=== PATIENT | male | born 1970 | race Two or more races ===

== ENCOUNTER → 2016-04-22 | Day surgery (SDC) | payer MEDICARE, MEDICAID ==
[~2016-04-22] VITALS: Ht 180.3 cm; Wt 110.0 kg
[~2016-04-22] MED LIST: ACETAMINOPHEN 1000 MG/100 ML VIAL IV ONE; AMIT1TAB79 PO; ASPI81TA81 PO; BUPIVACAINE HCL PF 0.5% 30 ML VIAL ONE; CYCL1TAB29 PO; DESM1SPR NASAL; DEXT 5%-NACL 0.45% 1000 ML INJ 1,000 ML IV SCH; DO NOT ADM ANY ANTICOAGULANT DRUGS XX PRN; FAMOTIDINE 20 MG/2 ML VIAL ONE; GABA300C5 PO; GABA600T PO; HYDR10TA65 PO; HYDR5TAB64 PO; HYDROCORTISONE SOD SUCCINATE 100 MG VIAL ONE; IBUP800T23 PO; INSULIN HUMAN REGULAR 1,000 UNITS/10 ML VIAL SQ PRN; LACTATED RINGER'S 1000 ML INJ 1,000 ML IV ONE; LACTATED RINGER'S 1000 ML IV SCH; LEVO137T2 PO; LISI-519 PO; METF1000 PO; METOPROLOL TARTRATE 25 MG TAB PO PRN; MIDAZOLAM HCL 2 MG/2 ML VIAL ONE; NEOSTIGMINE 3 MG/3 ML SYR IV ONE; NORC5TAB PO; ONDANSETRON HCL 4 MG/2 ML VIAL ONE; PERC10TA27 PO; POVIDONE IODINE 10% OINT 1 PACKET TOP ONE; PROPOFOL 200 MG/20 ML AMP IV ONE; SIMV20TA PO; SODIUM CHLORID 0.9% 500 ML IV SCH; SODIUM CHLORIDE 0.9% FLUSH 5 ML FLUSH IVF PRN; SODIUM CHLORIDE 0.9% FLUSH 5 ML FLUSH IVF SCH; TEST1INJ3 IM; ceFAZolin 2 GM PREMIX 50 ML IV SCH; fentaNYL CITRATE 250 MCG/5 ML AMP ONE; oxyCODONE/ACETAMINOPHEN 10 MG/325 MG TAB ONE; oxyCODONE/ACETAMINOPHEN 10 MG/325 MG TAB PO ONE
[2016-04-22 06:43] VITALS: BP 133/83; PULSE 87; RESP 16; TEMP 98; O2SAT 96
[2016-04-22 06:53] LABS: AUTOMATED NEUTROPHIL # 2.6 TH/MM3 (1.8-7.7); BASOPHIL # 0.1 TH/MM3 (0-0.2); EOSINOPHIL # 0.3 TH/MM3 (0-0.4); EOSINOPHIL % 4.5 % (0.0-4.0); HEMO FLAGS DIFF FINAL; LYMPH % 40.3 % (9.0-44.0); LYMPHOCYTE # 2.3 TH/MM3 (1.0-4.8); MEAN CELL VOLUME 89.4 FL (80.0-100.0); MEAN CORPUSCULAR HEMOGLOBIN 31.4 PG (27.0-34.0); MEAN CORPUSCULAR HGB CONC 35.1 % (32.0-36.0); MONO % 8.9 % (0.0-8.0); NEUT % 45.3 % (16.0-70.0); PLATELET COUNT 182 TH/MM3 (150-450); RED BLOOD COUNT 4.26 MIL/MM3 (4.50-5.90); RED CELL DISTRIBUTION WIDTH 13.2 % (11.6-17.2); WHITE BLOOD COUNT 5.7 TH/MM3 (4.0-11.0)
--- NOTE | 2016-04-22 07:52 | HP.UPD ---
H&P Update Date: Apr 22, 2016 Note The Pre-Admit History and Physical Examination regarding the above named patient was reviewed (including, but not limited to, vital signs, medications, allergies, co-morbid conditions), and upon re-examination it is noted that: Indicated with "X" x - the patient's condition has not significantly changed since the last examination. [] - the patient's condition has changed since the last examination. Changes: Heather Cruz MD Apr 22, 2016 07:52
--- NOTE | 2016-04-22 10:58 | HHI.PR ---
Immediate Post Op Note Procedure Date: Apr 22, 2016 Pre Op Diagnosis: (1) Dupuytren's contracture Right hand Post Op Diagnosis: (1) Dupuytren's contracture Right hand. Surgeon: Heather Cruz MD Wafer Fab Technician(s): N/A Procedure: Excision of Dupuytren's fascia with release of contracture right palm, fourth and fifth finger. Complications: N/A Specimen(s) removed: Dupuytren's fascia Estimated blood loss: None Anesthesia: General Drains: None Tourniquet time (min at mmHg) 113minute 230mmHg Patient to: PACU Patient Condition: Mariah Nicole Apr 22, 2016 10:58
[2016-04-22 11:02] VITALS: PULSE 89
[2016-04-22 12:45] VITALS: BP 135/80; PULSE 100; RESP 18; TEMP 97.9; O2SAT 96
--- NOTE | 2016-04-22 22:38 | EKG ---
Date Performed: 04/22/2016 Time Performed: 06:50:46 PTAGE: 46 years EKG: Sinus rhythm NORMAL ECG NO PREVIOUS TRACING DOCTOR: Lesa Mark Interpretating Date/Time 04/22/2016 22:35:12
--- NOTE | 2016-04-26 19:17 | MP ---
cc: MELECIO CERON M.D. DATE OF SURGERY: 04/22/2016 PREOPERATIVE DIAGNOSIS: Dupuytren's disease with contracture of the right palm fourth and fifth fingers. POSTOPERATIVE DIAGNOSIS: Dupuytren's disease with contracture of the right palm fourth and fifth fingers. PROCEDURE: 1. Release Dupuytren's contracture right palm and fifth finger. 2. Release Dupuytren's contracture of right palm and fourth finger. ANESTHESIA General SURGEON Melecio Ceron MD INDICATIONS 46-year-old male with history of Dupuytren's disease for release findings at the completion of the procedure the fingers was straight and fascia removed and with good circulation of the fingers tourniquet time was 113 minutes at 220 mmHg. PROCEDURE The patient was seen preoperatively. The sites and survey identified and marked. The patient was then taken to the operating room, placed in supine position. His identity was checked against the arm and the consent form site and side confirmed, time-out called prior to in the procedure the right upper extremity was prepped with Hibiclens and draped in usual sterile fashion. The area be incised was on a marking pen a zigzag incision on the proximal palm all the way to the PIP joint of the fifth finger and from the proximal to the middle part of the ring finger. The arm was exsanguinated, tourniquet inflated to 250 mmHg bupivacaine 0.5% plain was then used to make ulnar and median nerve blocks in the area of the wrist. #15 blade was then used to make a zigzag incision in the palm and fifth finger, down through skin down to the subcutaneous tissue. Proximal dissection was done from proximal to distal and the deep fibers as well as a horizontal fibers were divided. The neurovascular bundles were identified and used to he had uses a guide to excise the fascia. The dissection went from proximal and distal to the fascia was completely out and the finger was straight. Attention then turned to the mid ring finger where the incision was made down through skin down to the subcutaneous tissue under loop magnification. Neurovascular bundles were identified and the Dupuytren's fascia was carefully from the underlying fascia and the tendon sheath. It was quite thick. There was a flexion contracture approximately at 80 degrees at the PIP joint. This was down to 5 degrees at the completion of procedure. Dissection went from proximal to distal identified. Neurovascular bundles until all the Dupuytren's fascia was at the contracture was released. The wounds were then copiously irrigated with saline and closed with interrupted running 5-0 nylon suture after 130 minutes. Tourniquet was released. Pressure was applied. After several minutes there was no evidence of any oozing a dressing was applied using povidone-iodine ointment, Adaptic Telfa, fluffy gauze hand wrap and a dorsal splint. The patient was then taken from the operating room to the recovery room in satisfactory condition having tolerated the procedure well. Postoperative instructions include keeping arm elevated, keeping it clean and dry and returning several days for follow up. MD DAVID Roy/denny /11:04 AM /7:11 PM
== END | disposition home or self-care (01) ==
LOC: HSDC 05:57
PROVIDERS: ATTEND Specialist
DX: M72.0 Palmar fascial fibromatosis [Dupuytren] (principal); I10 Essential (primary) hypertension
CPT/HCPCS: 01810; 26123; 26125; 85025; 88304; 93005; J0131; J0690; J1720; J2250; J2405; J2710; J3010; J7120